=== PATIENT | male | born 1990 | race Caucasian/White ===

== ENCOUNTER 2018-06-30 09:39 | Emergency (ER) | payer SELFPAY ==
[2018-06-30 09:40] VITALS: BP 128/75; PULSE 94; RESP 18; TEMP 36.6; O2SAT 99; BMI 24.4
--- NOTE | 2018-06-30 09:56 | ED.DCSUM_ITS ---
- ER Visit Summary Date of Service: 06/30/18 Chief Complaint: Abdominal pain History of Present Illness: The patient is a 27 M who presents with abdominal pain that has been constant for the past 4 days. Patient states pain is over the right lower abdomen. Patient describes the pain as constant but sharp at times. Patient admits to some nausea and vomiting. Patient states he has had some blood in his emesis today. Patient also states he has had blood in his stools. Patient states he has noted maroon stools recently. Patient denies any urinary complaints. Patient does admit to generalized fatigue. Physical Examination: Vital signs are stable. Patient is afebrile. Patient is in no acute distress. Oral mucosa is pink and moist. Neck is supple. Trachea is midline. There is no JVD noted. Heart was regular rate and rhythm. Lungs are clear and equal bilateral. Abdomen is soft. Bowel sounds are normal. There is epigastric tenderness. There is no rebound or guarding noted. There is a midline ventral hernia palpated but there is no evidence of incarceration o r strangulation. Rectal exam showed good sphincter tone. There is brown stool which was guaiac negative. Skin is warm dry. Cranial nerves II through XII are intact. There are no focal motor or sensory deficits noted. The remaining physical exam is within normal limits. Test Results: CBC, comprehensive metabolic profile, lipase, and urinalysis were obtained. There is a mild leukocytosis of 13.1. Remaining labs are all within normal limits. Emergency Department Course and Treatment: Patient was given IV fluids and Zofran here. Patient was feeling better on reevaluation. Patient was given a prescription for Zofran. Patient was instructed to start with a liquid diet and advance as tolerated. Patient was instructed to follow-up with his primary care physician in 3-5 days. Patient understood and was agreeable with the plan. All questions were answered. Disposition: Discharge home Impression: Abdominal pain This note was generated with [employer] dictation software. It may contain incorrect words, spelling, and punctuation that were not noted in review of the chart amanda or to signing ED Disposition - Plan for ED Patient: Disposition: Home or Assisted Living Instructions: ED Abdominal Pain Unkn Cause Prescriptions: Ondansetron [Zofran Odt] 4 mg PO Q8H PRN PRN #10 tab PRN Reason: Nausea Referrals: Care Physician,No Primary [Primary Care Provider] -
[2018-06-30] MEDS: Ondansetron 4 MG/2 ML Vial IV (10:01)
[2018-06-30] MEDS: 0.9% Normal Saline 1,000 ML 1000 ML IV (10:01)
[2018-06-30 10:02] LABS: Bacteria 0 SEEN /hpf (None Seen); Mucous, Urine 0 SEEN /hpf (<or=2+); Red Blood Cells-Urine 0 SEEN /hpf (0-5); Squamous Epithelial Cells - UA 0 SEEN /hpf (0-5); White Blood Cells 0 SEEN /hpf (0-5)
[2018-06-30 10:08] LABS: Color, Urine Yellow (Yellow); Glucose, Dipstick Normal (Normal); Ketone-Dipstick Negative (Negative); Leukocyte Esterase-Dipstick Negative /ul (Negative); Nitrite-Dipstick Negative (Negative); Occult Blood-Urine Negative /ul (Negative); Protein-Dipstick Negative (Negative); Urine Bilirubin Dipstick Negative (Negative); Urine Clarity Sl. Cloudy (Clear); Urine Urobilinogen Normal (Normal)
[2018-06-30 10:10] LABS: Absolute Lymphocyte Count 1.77 X10^3/ul (0.83-4.51); Absolute Neutrophil Count 10.2 X10^3/uL (2.0-7.7); Basophil# 0.09 X10^3/uL; Basophil% 0.7 % (0-1); Eosinophil# 0.23 X10^3/uL; Eosinophils% 1.8 % (0-5); Hematocrit 48.7 % (40-54); Hemoglobin 15.9 g/dl (13.0-16.5); Lymphocyte # 1.77 X10^3/ul (4.0); Lymphocyte % 13.6 % (19-41); Mean Corp Hgb Conc 32.6 g/gl (32-36); Mean Corpuscular Hgb 30.5 pg (27.0-32.0); Mean Corpuscular Volume 93.3 fL (80-94); Mean Platelet Vol. 9.3 fl (6.2-12.0); Monocyte# 0.73 X10^3/uL; Monocyte% 5.6 % (0-10); Neutrophil # 10.21 X10^3/uL (2.7-7.7); Neutrophil % 78.1 % (47-70); Platelet Count 335 K/mm3 (150-450); RBC Distribution Width CV 12.3 % (11.6-14.6); RBC Distribution Width SD 41.6 fl (35.1-43.9); Red Blood Count 5.22 M/mm3 (4.6-6.2); White Blood Count 13.1 K/mm3 (4.4-11.0)
[2018-06-30 10:11] LABS: POSITIVE COUNT NO; POSITIVE DIFFERENTIAL NO; POSITIVE MORPHOLOGY NO
[2018-06-30 10:16] LABS: Amorphous Sediment 2+
[2018-06-30 10:23] LABS: ALB/GLOB Ratio 1.4 RATIO (0.9-2.4); AST(SGOT) 13 U/L (15-37); Alanine Aminotransfer ALT/SGPT 25 U/L (16-61); Albumin, Serum 4.5 g/dL (3.2-5.0); Alkaline Phosphatase 61 U/L (45-117); Anion Gap 3 (5-15); BUN 10 mg/dL (7-18); BUN/Creat Ratio 11.4 RATIO (10-20); Calcium,Total 9.2 mg/dL (8.5-10.1); Chloride 106 mmol/L (98-107); Creatinine, Serum 0.88 mg/dL (0.70-1.30); EST Glomerular Filtration Rate 111 mL/min (>60); Est Glom Filt Rate - Afr Amer 134 mL/min (>60); Estimated Creatinine Clearance 139.62 ml/min; Globulin 3.3 g/dL (2.2-4.2); Glucose 91 mg/dL (74-106); Lipase 80 U/L (73-393); Potassium 4.5 mmol/L (3.5-5.1); Protein, Total 7.8 g/dL (6.4-8.2); Sodium Level 136 mmol/L (136-145)
[2018-06-30 13:16] VITALS: BP 118/69; PULSE 72; RESP 15; O2SAT 98
== END 2018-06-30 13:17 | disposition home or self-care (01) ==
PROVIDERS: Emergency Provider Emergency Medicine
DX: R10.9 Unspecified abdominal pain (principal); R11.2 Nausea with vomiting, unspecified; K43.9 Ventral hernia without obstruction or gangrene; K92.1 Melena; R19.7 Diarrhea, unspecified; R53.83 Other fatigue; Z72.0 Tobacco use
CPT/HCPCS: 80053; 81001; 82274; 83690; 85025; 96361; 96374; 99283; J7030; A4216; J2405

== ENCOUNTER 2019-02-27 09:41 | Emergency (ER) | payer SELFPAY ==
[2019-02-27 09:42] VITALS: BP 137/71; PULSE 91; RESP 16; TEMP 37.1; O2SAT 99; BMI 24.4
--- NOTE | 2019-02-27 09:50 | RAD_ITS ---
STUDY: X-RAY - RIGHT HAND REASON FOR EXAM: Male, 28 years old. Pain and swelling in the third proximal interphalangeal joint secondary to cat bite. TECHNIQUE: 3 view(s) of the hand. COMPARISON: None. FINDINGS: Normal radiocarpal articulation. Normal distal radioulnar joint. Normal visualized carpal bones. Normal carpal articulations Normal carpometacarpal articulation of the thumb. Normal second through fifth carpometacarpal joints. Normal metacarpi. Normal metacarpophalangeal joint of the thumb. Normal interphalangeal joint of the thumb. Normal proximal and distal phalanges of the thumb. Normal metacarpophalangeal joints of the second through fifth fingers. Normal proximal and distal interphalangeal joints of the second through fifth fingers. Normal phalanges of the second through fifth fingers. Soft tissue swelling of the third digit. RAD/Hand Min 3 Views IMPRESSION: Soft tissue swelling of the third digit. Electronically Signed: Schuyler Robertson, at 10:20 EDT , Service support ,
--- NOTE | 2019-02-27 10:03 | ED.DCSUM_ITS ---
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, indicates he had persistent pain presents for evaluation he denies a past history his tetanus is not up-to-date Past Medical History - Allergies and Home Meds Allergies/Adverse Reactions: Allergies hydrocodone bitartrate [From Vicodin] Adverse Reaction (Verified 02/27/19 09:42) Nausea Primary Care Physician: Care Physician,No Primary [Primary Care Provider] - Past Medical History: - Smoking Status: Current every day smoker Review of Systems ROS: - Denies General: Denies: Chills, Fever, Sweats Eyes: Denies: Visual changes - bilaterally, Diplopia ENT: Denies: Rhinorrhea, Sore throat Cardiovascular: Denies: Chest pain, Palpitations Respiratory: Denies: Dyspnea, Cough, Dyspnea on exertion Gastrointestinal: Denies: Abdominal pain, Nausea, Vomiting, Diarrhea, Melena, Hematochezia Genitourinary: Denies: Dysuria, Hematuria, Frequency Musculoskeletal: Reports: - - Pain to the right middle finger PIP joint area. Denies: Back pain, Extremity Pain Skin: Denies: Rash, Wounds Neurological: Denies: Headache, Weakness, Numbness Physical Exam Vital Signs/Narrative: Vital Signs Temp Pulse Resp BP Pulse Ox 02/27/19 09:42 98.7 F 91 16 137/71 H 99 General: Well nourished, Well developed, No Acute Distress Head: Normocephalic, Atraumatic Eyes: Perrl, EOMI ENT: Moist mucous membranes, No rhinorrhea Neck: Supple, Nontender Cardiovascular: Regular rate, Regular rhythm, No murmurs Respiratory: No distress, CTA bilaterally, Chest nontender Abdomen: Soft, Nontender, Nondistended, Normal bowel sounds Back: Nontender, Normal Inspection Extremities: No edema, - - To the right hand he has scattered abrasions over the hand and the wrist region but full range of motion he has abrasions and a small laceration over the right middle finger PIP joint, he has decreased ability to flex and extend at the PIP his DIP joint flexion extension is slightly reduced as well sensations intact MCP joint is intact, he has no obvious tenderness to palpation over the flexor crease but discomfort over the trauma from the bite re lated to the adjacent areas to the PIP joint Skin: Normal color, No rash Neurological: Alert, Oriented x3, Cranial nerves II-XII grossly intact, Normal Strength, Normal Sensation Psychological: Normal affect, Normal Mood Diagnostic/Tx/Re-eval - Medical Decision Making Discussed all the above with the patient the concept of deep-seated injury tendinous joint involvement infection, x-rays obtained that shows nothing acute at this time we did cleanse the wound provide dressing aluminum finger splint Augmentin update tetanus Naprosyn for pain I explained to him he should go immediately to be seen today for [facility] for hand care, he is not sure if he can do that today as he has other plans possibly even work I explained that he should do this done as soon as possible as we discussed the concept of joint infection tendon injury etc. and he will try to arrange rearrange his activities and try to be seen at [facility] today we did provide him x-rays of his hand and the contact information for [facility], in addition he was discharged on Augmentin and Naprosyn, he understands that the evaluation through the ED was just the beginning and he needs more detailed evaluation by hand service Home stable Impression final Cat bite involving right middle finger PIP joint area ED Disposition - Plan for ED Patient: Diagnosis: Cat bite of finger Instructions: Cat Bite Prescriptions: Amox/Clavulanate Tablet [Augmentin Tablet] 875 mg PO Q12H #20 tab Prescription Printed Naproxen [Naprosyn] 500 mg PO BID PRN #20 tab Prescription Printed Referrals: Care Physician,No Primary [Primary Care Provider] - Fausto Sheth Jr., MD [NON-STAFF] - As soon as possible Additional Instructions: Please follow-up with hand service as discussed today or tomorrow to be evaluated for possible joint or tendon injury
[2019-02-27] MEDS: Amox/Clavulanate 875 MG Tablet PO (10:17)
[2019-02-27] MEDS: Diphth,Pertuss(Acell),Tet Vac 0.5 ML Vial IM (10:17)
[2019-02-27] MEDS: Naproxen 500 MG Tablet PO (10:17)
[2019-02-27 10:48] VITALS: BP 126/84; PULSE 68; RESP 16; O2SAT 98
== END 2019-02-27 10:55 | disposition home or self-care (01) ==
PROVIDERS: Emergency Provider Emergency Medicine
DX: S61.252A Open bite of right middle finger without damage to nail, initial encounter (principal); W55.01XA Bitten by cat, initial encounter; Y93.89 Activity, other specified; F17.200 Nicotine dependence, unspecified, uncomplicated
CPT/HCPCS: 73130; 90715; 99284